=== PATIENT | male | born 2000 | race Caucasian/White ===

== ENCOUNTER 2020-03-15 14:46 | Emergency (ER) | payer OTHER ==
[~2020-03-15] VITALS: Ht 188 cm; Wt 136.4 kg
[2020-03-15] MEDS ORDERED: ACETAMINOPHEN 500 MG TABLET PO ONE (15:45)
[2020-03-15] MEDS ORDERED: IBUPROFEN 600 MG TABLET PO ONE (16:30)
[2020-03-15 16:51] VITALS: BP 137/81
== END 2020-03-15 16:53 | disposition home or self-care (01) ==
LOC: EMS 14:53
DX: R05 Cough (principal); R50.9 Fever, unspecified; I10 Essential (primary) hypertension; Z20.828 Contact with and (suspected) exposure to other viral communicable diseases; Z88.0 Allergy status to penicillin; Z88.1 Allergy status to other antibiotic agents
CPT/HCPCS: 99283; U0003

== ENCOUNTER 2020-12-09 10:14 | Emergency (ER) | payer OTHER ==
[~2020-12-09] VITALS: Ht 193 cm; Wt 145.4 kg
[2020-12-09 10:24] VITALS: BP 167/103
[2020-12-09] MEDS ORDERED: ACETAMINOPHEN 325 MG TABLET PO ONE (11:45)
[2020-12-09 11:59] LABS: COVID AG,FIA SOURCE NASOPHARYNGEAL
== END 2020-12-09 11:53 | disposition home or self-care (01) ==
LOC: EMS 10:14
DX: J02.9 Acute pharyngitis, unspecified (principal); R05 Cough; I10 Essential (primary) hypertension; Z20.822 Contact with and (suspected) exposure to COVID-19; Z88.0 Allergy status to penicillin; Z88.1 Allergy status to other antibiotic agents
CPT/HCPCS: 87426; 99283; C9803; U0003

== ENCOUNTER 2020-12-26 17:06 | Emergency (ER) | payer OTHER ==
[~2020-12-26] VITALS: Ht 193 cm; Wt 145.4 kg
[2020-12-26 17:10] VITALS: BP 156/110
[2020-12-26] MEDS ORDERED: PERTUSS(ACELL),DIPH,TET VAC/PF 0.5 ML SYRINGE IM. ONE (17:45)
== END 2020-12-26 18:02 | disposition home or self-care (01) ==
LOC: EMS 17:07
DX: S91.311A Laceration without foreign body, right foot, initial encounter (principal); I10 Essential (primary) hypertension; Z88.0 Allergy status to penicillin; W22.8XXA Striking against or struck by other objects, initial encounter; Y93.01 Activity, walking, marching and hiking; Y92.89 Other specified places as the place of occurrence of the external cause; Y99.8 Other external cause status
CPT/HCPCS: 90471; 90715; 99283

== ENCOUNTER 2021-04-02 16:33 | Emergency (ER) | payer OTHER ==
[~2021-04-02] VITALS: Ht 193 cm; Wt 136.0 kg
[2021-04-02 16:59] VITALS: BP 151/74
[2021-04-02 17:34] LABS: COVID AG,FIA SOURCE NASOPHARYNGEAL
== END 2021-04-02 18:43 | disposition home or self-care (01) ==
LOC: EMS 16:34
DX: Z20.822 Contact with and (suspected) exposure to COVID-19 (principal); Z88.1 Allergy status to other antibiotic agents; Z88.0 Allergy status to penicillin
CPT/HCPCS: 87426; 99283; U0003

== ENCOUNTER 2022-05-04 14:54 | Emergency (ER) | payer OTHER ==
[~2022-05-04] VITALS: Ht 193 cm; Wt 130.0 kg
[2022-05-04 16:38] VITALS: BP 140/88
== END 2022-05-04 17:16 | disposition home or self-care (01) ==
LOC: EMS 14:58
DX: R59.0 Localized enlarged lymph nodes (principal); Z90.49 Acquired absence of other specified parts of digestive tract; Z88.0 Allergy status to penicillin; Z88.8 Allergy status to other drugs, medicaments and biological substances
CPT/HCPCS: 99281; Z7502